=== PATIENT | male | born 1990 | race Caucasian/White ===

== ENCOUNTER → 2021-09-06 | Outpatient (CLI) | payer BC, OTHER | LOC: HEART 5 09-02 11:00 | DX: R07.9 Chest pain, unspecified (principal); R06.02 Shortness of breath; R00.2 Palpitations; I07.1 Rheumatic tricuspid insufficiency; I27.20 Pulmonary hypertension, unspecified | CPT/HCPCS: 93306 ==

== ENCOUNTER 2022-03-19 11:18 | Emergency (ER) | payer OTHER ==
[2022-03-19 12:14] LABS: HEMOGLOBIN 14.5 gm/dl (14.0-17.5); RED BLOOD COUNT 4.33 M/UL (4.20-5.50); WHITE BLOOD COUNT 8.1 K/UL (4.5-11.0)
[2022-03-19 12:43] LABS: BUN/CREATININE RATIO 12 (0-10)
[2022-03-19] MEDS ORDERED: PROTONIX40 MG PO (14:28)
== END 2022-03-19 14:55 | disposition home or self-care (01) ==
LOC: ER1 11:18
PROVIDERS: Emergency Medicine
DX: R10.9 Unspecified abdominal pain (principal); I10 Essential (primary) hypertension; K21.9 Gastro-esophageal reflux disease without esophagitis
CPT/HCPCS: 80053; 81001; 82550; 82553; 83690; 84484; 85025; 96374; 96375; 99284; J2270; J2405; Q9967